=== PATIENT | male | born 1950 | race Caucasian/White ===

== ENCOUNTER → 2016-08-20 | Outpatient (CLI) | payer BC ==
[~2016-08-20] MED LIST: IOPAMIDOL (ISOVUE-300) 100 ML BTL IV ONE
== END ==
LOC: FIMAGING 14:43
PROVIDERS: ATTEND Internal Medicine Hematology & Oncology
DX: R10.9 Unspecified abdominal pain (principal); M51.36 Other intervertebral disc degeneration, lumbar region; M48.03 Spinal stenosis, cervicothoracic region
CPT/HCPCS: Q9967

== ENCOUNTER 2016-10-12 10:41 | Day surgery (SDC) | payer BC ==
[~2016-10-12 10:41] MED LIST changes: -IOPAMIDOL (ISOVUE-300) 100 ML BTL IV ONE; +ceFAZolin 2 GM/DEXTROSE 100 ML IV ONE
[2016-10-12] MEDS ORDERED: CEFAZOLIN 2 GM/DEXTROSE/100 ML BAG IV ONE (11:39)
[2016-10-12] MEDS ORDERED: BUPIVACAINE 0.5% 30 ML SDV ONE (11:41)
[2016-10-12] MEDS ORDERED: MIDAZOLAM 2 MG/2 ML VIAL ONE (12:22)
[2016-10-12] MEDS ORDERED: fentaNYL 100 MCG/2 ML INJ ONE (12:35)
[2016-10-12] MEDS ORDERED: PROPOFOL 200 MG/20 ML VIAL ONE (12:35)
[2016-10-12] MEDS ORDERED: LIDOCAINE 2% 100 MG/5 ML SYR ONE (12:37)
[2016-10-12] MEDS ORDERED: ONDANSETRON 4 MG/2 ML VIAL ONE (12:57)
[2016-10-12] MEDS ORDERED: DEXAMETHASONE 4 MG/ML VIAL ONE (12:57)
[2016-10-12] MEDS ORDERED: epHEDrine SULFATE 10 MG/ML SYR ONE (13:04)
[2016-10-12] MEDS ORDERED: PHENYLEPHRINE HCL 100 MCG/ML SYR ONE (13:04)
--- NOTE | 2016-10-13 10:55 | GOP ---
[f rep st] OPERATIVE REPORT DATE OF OPERATION: 10/12/2016 SURGEON: Geo Joyner MD DETONATOR ASSEMBLER: CAPRI Verde ANESTHESIOLOGIST: Dr. Scanlon. PREOPERATIVE DIAGNOSIS: Bilateral inguinal hernias. POSTOPERATIVE DIAGNOSIS: Bilateral inguinal hernias. PROCEDURE PERFORMED: Laparoscopic bilateral inguinal hernia repairs with mesh. FINDINGS: The patient was found have bilateral direct defects. There were no indirect sacs. DESCRIPTION OF PROCEDURE: The patient was taken to the operating room where he received satisfactor y general endotracheal anesthesia by Dr. Scanlon. He was placed in the supine position, prepped and d raped in the usual sterile fashion. An infraumbilical incision was made. Dissection was carried do wn to the rectus sheath, which was incised. A subfascial tunnel in the preperitoneal spa ce. That was dissected free with a balloon dissector, which was replaced with CO2 insufflation troc ar. Two other trocars were placed in the midline under direct vision. Iván ligament was exposed bilaterally. The cords were mobilized bilaterally. Peritoneum was dissected off the cord structure s. There were no significant indirect sacs. The lipoma was reduced. The major defects were direct weaknesses. Bilateral Covidien polyester mesh patches were placed over the inguinal floors and anc hored in place with AbsorbaTack, securing it to Iván ligament, to the lacunar ligament, and anteri or abdominal wall, and the lateral abdominal wall outside the internal ring. Both sides were handle d in a similar manner. Hemostasis was assured. Trocars were removed under direct vision, and troca r sites were closed with 0 Vicryl for the fascia, 4-0 Monocryl subcuticular stitch for the skin. Al l layers infiltrated with % Marcaine. Blood loss negligible. Taken to the recovery room in good condition. Copy requested to: Dr. Daniel Renteria /[id number]/MODL
== END 2016-10-12 15:45 | disposition home or self-care (01) ==
LOC: FSGY 10:41
PROVIDERS: ATTEND Surgery
PROC: 0YQA4ZZ Repair Bilateral Inguinal Region, Percutaneous Endoscopic Approach (ICD-10-PCS; principal; 2016-10-12 12:00)
DX: K40.00 Bilateral inguinal hernia, with obstruction, without gangrene, not specified as recurrent (principal); G47.33 Obstructive sleep apnea (adult) (pediatric); I10 Essential (primary) hypertension; K21.9 Gastro-esophageal reflux disease without esophagitis
CPT/HCPCS: 49650; C1727; C1781; J0690; J1100; J2001; J2250; J2370; J2405; J2704; J3010